=== PATIENT | male | born 1995 | race Caucasian/White ===

== ENCOUNTER 2025-05-14 12:26 | Emergency (ER) | payer OTHER ==
--- NOTE | 2025-05-14 12:49 | ED ---
General Adult HPI - General Stated complaint: [facility] Hand Injury Time Seen by Provider: 05/14/25 12:45 - History of Present Illness Initial comments: Dictation was produced using An[employer] dictation software. please excuse any grammatical, word or spelling errors. Chief Complaint: 29-year-old male with a right hand laceration History of Present Illness: 21-year-old male with right hand LAC. Patient was using a grinder and honer operator automatic to sharpen lawnmower blades. States that the angle grinder and honer operator automatic kicked and he got his hand. States that his tetanus was updated last year. Denies any loss of function of his right hand The ROS documented in this emergency department record has been reviewed and confirmed by me. Those systems with pertinent positive or negative responses have been documented in the HPI. All other systems are other negative and/or noncontributory. - Related Data Allergies Allergy/AdvReac Type Severity Reaction Status Date / Time milk Allergy Rash/Hives Verified 05/14/25 12:53 Review of Systems ROS Statement: Those systems with pertinent positive or pertinent negative responses have been documented in the HPI. ROS Other: All systems not noted in ROS Statement are negative. General Exam - General Exam Comments Initial Comments: General: Well-appearing, nontoxic, no acute distress. Head: Normocephalic, atraumatic Eyes: PERRLA, EOMI ENT: Airway patent Chest: Nonlabored breathing Skin: No visual rash, normal skin tone Neuro: Alert and oriented 3 Musculoskeletal: No gross abnormalities Right hand: 1.5 cm laceration to the second MCP, no active bleeding Course Vital Signs 05/14/25 12:51 Temperature 99.1 F Pulse Rate 82 Respiratory 20 Rate Blood Pressure 151/94 O2 Sat by Pulse 96 Oximetry Procedures - Laceration Laceration #1 Consent Obtained: verbal consent Indication: laceration Site: hand Size (cm): 2 Description: linear Depth: simple, single layer Anesthetic Used: lidocaine 1%, with epi Anesthesia Technique: local infiltration Pre-repair: wound explored, irrigated extensively Size of Sutures: 4-0 Number of Sutures: 3 Technique: simple, interrupted Patient Tolerated Procedure: well Medical Decision Making - Medical Decision Making Was pt. sent in by a medical professional or institution (, PA, SPANISH TRANSLATOR, urgent care, hospital, or [facility]...) When possible be specific @ -No Did you speak to anyone other than the patient for history (EMS, parent, family, police, friend...)? What history was obtained from this source @ -No Did you review nursing and triage notes (agree or disagree)? Why? @ -I reviewed and agree with nursing and triage notes Were old charts reviewed (outside hosp., previous admission, EMS record, old EKG, old radiological studies, urgent care reports/EKG's, [facility] records)? Report findings @ -No old charts were reviewed Differential Diagnosis (chest pain, altered mental status, abdominal pain women, abdominal pain men, vaginal bleeding, musculoskeletal, weakness, fever, dyspnea, syncope, headache, dizziness, GI bleed, back pain, seizure, CVA, palpatations, mental health)? @ -Laceration, contusion, fracture EKG interpreted by me (3pts min.). @ -None done X-rays interpreted by me (1pt min.). @ -Head x-ray shows no foreign body CT interpreted by me (1pt min.). @ -None done U/S interpreted by me (1pt. min.). @ -None done What testing was considered but not performed or refused? (CT, X-rays, U/S, labs)? Why? @ -None What meds were considered but not given or refused? Why? @ -None Was smoking cessation discussed for >3mins.? @ -No Were there social determinants of health that impacted care today? How? (Homelessness, low income, unemployed, alcoholism, drug addiction, transportation, low edu. Level, literacy, decrease access to med. care, alf, rehab)? @ -No Was there de-escalation of care discussed even if they declined (Discuss DNR or withdrawal of care, Hospice)? DNR status @ -No What co-morbidities impacted this encounter? (DM, HTN, Smoking, COPD, CAD, Cancer, CVA, ARF, Chemo, Hep., AIDS, mental health diagnosis, sleep apnea, morbid obesity)? @ -None Was patient admitted / discharged? Hospital course, mention meds given and route, prescriptions, significant lab abnormalities, going to OR and other pertinent info. @ -21-year-old male with hand laceration. Vital signs stable. Laceration repaired please see procedure note. Patient discharged Did you discuss the management of the patient with other professionals (professionals i.e. , PA, SPANISH TRANSLATOR, lab, RT, psych nurse, older adult social work specialist, title lawyer, teacher, field crop technical officer, employment evaluator/case manager)? Give summary @ -No Was critical care preformed (if so, how long)? @ -No Undiagnosed new problem with uncertain prognosis? @ -No Drug Therapy requiring intensive monitoring for toxicity (Heparin, Nitro, Ins ulin, Cardizem)? @ -No Were any procedures done? @ -See above Diagnosis/symptom? Acute, or Chronic, or Acute on Chronic? Uncomplicated (without systemic symptoms) or Complicated (systemic symptoms)? @ -Head laceration Side effects of treatment? @ -No Exacerbation, Progression, or Severe Exacerbation? @ -No Poses a threat to life or bodily function? How? (Chest pain, [place], [place], pneumonia, PE, COPD, DKA, ARF, appy, cholecystitis, CVA, Diverticulitis, Homicidal, Suicidal, threat to staff... and all critical care pts) @ -No Disposition Clinical Impression: Laceration Disposition: HOME SELF-CARE Condition: Good Instructions (If sedation given, give patient instructions): Laceration (ED) Additional Instructions: Suture removal in 5 to 7 days Is patient prescribed a controlled substance at d/c from ED?: No Referrals: Kalani Tracy MD [Primary Care Provider] - 1-2 days Time of Disposition: 14:22
[2025-05-14 12:53] VITALS: BP 151/94; PULSE 82; RESP 20; TEMP 99.1
--- NOTE | 2025-05-14 13:50 | XR ---
EXAMINATION TYPE: XR hand complete RT DATE OF EXAM: 05/14/2025 1:41 PM COMPARISON: None. CLINICAL INDICATION: Male, 29 years old with history of hand lac, pain TECHNIQUE: 3 view(s) obtained. FINDINGS: No acute fracture or dislocation evident. Joint spaces are preserved. Soft tissues are normal. No rad iopaque foreign bodies. Follow up exams can be performed 7-10 days from acute trauma for continued pain. IMPRESSION: 1. No acute osseous abnormality right hand. [facility], , 05/14/2025 1:47 PM
[2025-05-14] MEDS: LIDOCAINE 2%-EPI 1:100,000 20 ML VIAL SQ STA (14:30)
== END 2025-05-14 15:47 | disposition home or self-care (01) ==
LOC: EC 12:26
DX: S61.411A Laceration without foreign body of right hand, initial encounter (principal); Z91.011 Allergy to milk products; W26.8XXA Contact with other sharp object(s), not elsewhere classified, initial encounter
CPT/HCPCS: 12001; 99283